=== PATIENT | female | born 1995 | race Caucasian/White ===

== ENCOUNTER 2019-03-20 11:05 | Day surgery (SDC) | payer MEDICAID ==
[2019-03-20 11:12] VITALS: BP 143/91
[2019-03-20] MEDS ORDERED: SULF1TAB49 PO (11:21)
== END 2019-03-20 12:35 | disposition home or self-care (01) ==
LOC: GI LAB 11:05
PROVIDERS: ATTEND Internal Medicine Gastroenterology
DX: Z43.1 Encounter for attention to gastrostomy (principal)
CPT/HCPCS: 43762; 44372; G0463